=== PATIENT | female | born 1940 | race Caucasian/White ===

== ENCOUNTER 2017-03-11 09:37 | Day surgery (SDC) | payer OTHER, MEDICARE ==
[2017-03-09 09:18] VITALS: BMI 23.2
[2017-03-11] MEDS ORDERED: LIDOCAINE 1%/EPI 1:100000 (50 ML MULTI DOSE VIAL) ONE (11:30)
[2017-03-11] MEDS ORDERED: PROPOFOL 20 ML ONE (12:00)
[2017-03-11] MEDS ORDERED: MIDAZOLAM HCL 2 MG/2 ML SINGLE DOSE VIAL ONE (12:00)
[2017-03-11] MEDS ORDERED: CLINDAMYCIN 600 MG PREMIX BAG IVPB ONE (12:06)
[2017-03-11] MEDS ORDERED: DEXAMETHASONE SOD PHOSPHATE 4 MG/1 ML VIAL ONE (12:12)
[2017-03-11] MEDS ORDERED: CLINDAMYCIN PHOSPHATE 600 MG/4 ML VIAL ONE (12:14)
[2017-03-11] MEDS ORDERED: KETOROLAC TROMETHAMINE 30 MG/1 ML VIAL ONE (12:33)
[2017-03-11] MEDS ORDERED: IBUPROFEN 800 MG/8 ML IJ IVPB PRN (12:36)
[2017-03-11] MEDS ORDERED: ACETAMINOPHEN 1000 MG/100 ML VIAL (NON FORMULARY) IVPB ONE (12:37)
[2017-03-11] MEDS ORDERED: DEXTROSE 5%-0.45% SALINE 1,000 ML IV SCH (12:45)
[2017-03-11 13:58] VITALS: TEMP 97.9
[2017-03-11 15:28] VITALS: BP 115/68; PULSE 74
--- NOTE | 2017-03-12 15:23 | PATH ---
Surgical Pathology Report Patient Name: MATTY CARBAJAL [facility]. Rec. #: [id number] /Age/Gender: 1940 (Age: 76) / F Account: [id number] Location: U SURGICAL Taken: 03/11/2017 Received: 03/11/2017 Reported: 03/12/2017 Physicians: Jw Monet M.D. 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 Comment: Clinical correlations are suggested. Electronically Signed Anirudh Phelps M.D. Gross Description Received in formalin labeled "caruncle" are 2 dejesus, irregular, unoriented portions of soft tissue measuring 1.1 x 0.4 x 0.3 cm and 1.4 x 1.0 x 0.8 cm. The larger portion is trisected and the specimen is entirely submitted in 2 cassettes as follows: 1-larger, trisected portion of tissue; 2-smaller portion of tissue. DL/03/11/2017 saudi/03/11/2017
--- NOTE | 2017-03-13 11:00 | OP ---
DATE OF OPERATION: 03/11/2017 PREOPERATIVE DIAGNOSIS: Urethral caruncle. POSTOPERATIVE DIAGNOSIS: Urethral caruncle. PROCEDURE: Excision of urethral caruncle. ANESTHESIA: General. SPECIMEN: Urethral caruncle. ESTIMATED BLOOD LOSS: Minimal. DRAINS: None. PREOPERATIVE INDICATION: The patient is a 76-year-old female with urethral caruncle. She has tried estrogen cream, but it persists. She requests it be excised. OPERATION: The patient was brought to the OR, placed on the table. Patient was given IV antibiotics and given anesthesia and placed in the modified lithotomy position. The groin was prepped and draped sterilely. Urethral caruncle was identified. Lidocaine with epinephrine was injected into the area. An Allis clamp was used to grasp the caruncle. The proximal aspect of it in the distal urethra was identified and a Vicryl stitch was placed there. At that point, a knife was used to excise the caruncle in total. This was sent off for histopathological diagnosis. Hemostasis was maintained. The mucosal layers were reapproximated using 3-0 Vicryl suture. Good hemostasis was maintained. An 18-Irish red rubber catheter was easily passed through the urethra after the procedure. Patient was woken up. Nannette [id number]
== END 2017-03-11 15:26 | disposition home or self-care (01) ==
LOC: JASU-SURG 09:37
PROVIDERS: ATTEND Urology
PROC: 0TBD0ZZ Excision of Urethra, Open Approach (ICD-10-PCS; principal; 2017-03-11 11:15)
DX: N36.2 Urethral caruncle (principal)
CPT/HCPCS: 87086; 88305-TC; 94760